=== PATIENT | female | born 1935 | race Two or more races ===

== ENCOUNTER 2023-04-15 19:37 | Emergency (ER) | payer OTHER ==
[~2023-04-15] VITALS: Ht 165.1 cm; Wt 59.0 kg
[2023-04-15] MEDS ORDERED: XARELTO20 MG PO (20:06)
[2023-04-15] MEDS ORDERED: ESTAZOLAM1 MG PO (20:06)
[2023-04-15] MEDS ORDERED: MIRTAZAPINE15 MG PO (20:06)
[2023-04-15] MEDS ORDERED: SYNTHROID137 MCG PO (20:06)
[2023-04-15] MEDS ORDERED: SIMVASTATIN40 MG PO (20:07)
[2023-04-15] MEDS ORDERED: CANDESARTAN CIL32 MG PO (20:08)
[2023-04-15] MEDS ORDERED: CLEOCIN HCL300 MG PO (22:05)
== END 2023-04-15 23:48 | disposition home or self-care (01) ==
LOC: ER 19:37
DX: L30.8 Other specified dermatitis (principal); G30.8 Other Alzheimer's disease; F02.80 Dementia in other diseases classified elsewhere, unspecified severity, without behavioral disturbance, psychotic disturbance, mood disturbance, and anxiety; E78.00 Pure hypercholesterolemia, unspecified; E03.9 Hypothyroidism, unspecified; G40.802 Other epilepsy, not intractable, without status epilepticus; M19.041 Primary osteoarthritis, right hand

== ENCOUNTER 2023-05-22 18:22 | Emergency (ER) | payer OTHER ==
[~2023-05-22] VITALS: Ht 154.9 cm; Wt 59.0 kg
[~2023-05-22 18:22] MED LIST: CANDESARTAN CIL32 MG PO; CLEOCIN HCL300 MG PO; ESTAZOLAM1 MG PO; MIRTAZAPINE15 MG PO; SIMVASTATIN40 MG PO; SYNTHROID137 MCG PO; XARELTO20 MG PO
[2023-05-22 20:13] LABS: HEMATOCRIT 38.3 % (36.0-45.00); HEMOGLOBIN 12.4 g/dL (12.0-15.00); MEAN CELL VOLUME 82.8 fL (80.00-100.00); MEAN CORPUSCULAR HEMOGLOBIN 26.9 pg (27.00-32.0); MEAN CORPUSCULAR HGB CONC 32.5 g/dl (32.0-36.0); PLATELET COUNT 332 K/uL (150-450); RED BLOOD COUNT 4.63 M/uL (4.00-6.00)
== END 2023-05-23 09:17 | disposition home or self-care (01) ==
LOC: ER 18:22
PROVIDERS: General Practice
DX: M11.20 Other chondrocalcinosis, unspecified site (principal); I10 Essential (primary) hypertension
CPT/HCPCS: 36415; 73100; 73130; 96365; 96372; 99283; J0696; J1885; J2175; J2550